=== PATIENT | female | born 1995 | race Caucasian/White ===

== ENCOUNTER 2019-11-07 17:11 | Emergency (ER) | payer MEDICAID ==
[~2019-11-07] VITALS: Ht 167.6 cm; Wt 133.8 kg
[2019-11-07 17:25] VITALS: Ht 167.6 cm; Wt 133.8 kg
[2019-11-07 18:12] LABS: microscopic required? YES; urine erythrocyte NEGATIVE (NEGATIVE)
[2019-11-07 18:45] LABS: BASOPHIL % 0.3 % (0-2); PLATELET COUNT 308 x10^3mcL (130-400); RED CELL DISTRIBUTION WIDTH 13.1 % (11.5-14.5)
[2019-11-07 18:52] LABS: CALCIUM 8.9 mg/dL (8.5-10.1); CHLORIDE SERUM 103 mmol/L (98-107); CREATININE SERUM 0.7 mg/dL (0.6-1.0); GFR1 > 60 mL/min; GLUCOSE SERUM 95 mg/dL (74-106); POTASSIUM SERUM 3.3 mmol/L (3.5-5.1); SODIUM SERUM 138 mmol/L (136-145)
[2019-11-07 20:10] VITALS: BP 136/76
== END 2019-11-07 20:10 | disposition home or self-care (01) ==
LOC: ED 17:11
PROVIDERS: Student in an Organized Health Care Education/Training Program
DX: O23.41 Unspecified infection of urinary tract in pregnancy, first trimester (principal); Z3A.01 Less than 8 weeks gestation of pregnancy
CPT/HCPCS: 36415